=== PATIENT | male | born 1960 | race Caucasian/White ===

== ENCOUNTER 2021-01-12 19:38 | Observation (INO) | payer BC, SELFPAY ==
[2021-01-12] VITALS (7 sets, daily range): BP systolic 129–145; BP diastolic 74–87; PULSE 57–65; RESP 14–21; TEMP 36.3–36.7; O2SAT 95–100; BMI 28.8
--- NOTE | ~2021-01-12 | CT_ITS ---
EXAMINATION: CT brain wo con DATE: 01/12/2021 20:27 INDICATION: Syncope. Vision difficulties. TECHNIQUE: Computed tomography (CT) of the head was performed without intravenous contrast. The mA wa s adjusted according to patient size. Iterative reconstruction technique was employed. Exam dose: 60 5.33 mGy-cm total exam DLP. COMPARISON: None FINDINGS: No intracranial mass lesion or hemorrhage or cerebrovascular accident. No midline shift or mass effect. Normal ventricular size. No subdural or epidural hematoma. No fracture or bone destruction of the cranial vault. Hypoplastic opacified right maxillary sinus. Interlamellar cell of middle nasal turbinates. Mucous retention cyst or polyp in the right frontal ethmoid area. The mastoid air cells are normally developed and aerated. IMPRESSION: No significant intracranial abnormality Reviewed, dictated and finalized at Location [facility]. Reviewed, dictated and finalized at location A.
--- NOTE | ~2021-01-12 | US_ITS ---
EXAMINATION: US carotid duplex BI DATE: 01/13/2021 12:59 INDICATION: Syncope TECHNIQUE: Grayscale, color Doppler, and pulsed Doppler images of the cervical carotid arteries were obtained. The degree of vessel stenosis is placed in one of the following categories: normal, <50%, 5 0-69%, >=70% but less than near-occlusion, near-occlusion, or total occlusion. Note that percent sten osis relative to normal distal artery lumen diameter is indirectly measured from velocity measurement s as described by Carmelo, et al. Radiology 2003; 229:340-346. COMPARISON: None. FINDINGS: RIGHT: The right common carotid artery (CCA) peak systolic velocity (PSV) is 100 cm/s. The right internal ca rotid artery (ICA) PSV is 69 cm/s. The right ICA end-diastolic velocity (EDV) is 23 cm/s. The right I CA/CCA PSV ratio is 0.7. Grayscale and color Doppler images yield an estimate of <50% diameter reduct ion from plaque in the ICA. The external carotid artery (ECA) PSV is 104 cm/s. There is antegrade dana w in the right vertebral artery. LEFT: The left CCA PSV is 114 cm/s. The left ICA PSV is 89 cm/s. The left ICA EDV is 30 cm/s. The left ICA/ CCA PSV ratio is 0.8. Grayscale and color Doppler images yield an estimate of <50% diameter reduction from plaque in the ICA. The ECA PSV is 81 cm/s. There is antegrade flow in the left vertebral artery . IMPRESSION: 1. <50% stenosis in the right internal carotid artery. 2. <50% stenosis in the left internal carotid artery. Reviewed, dictated and finalized at location A.
--- NOTE | ~2021-01-12 | XR_ITS ---
XR chest 1V portable DATE: 01/12/2021 20:02 INDICATION: Shortness of breath for one hour. Syncope. TECHNIQUE: Portable upright AP chest on 01/12/2021 at 1957 hours COMPARISON: 11/30/2018 PA and lateral views FINDINGS: Heart size is borderline. No hilar or mediastinal enlargement. No pulmonary infiltrate or c onsolidation, pleural effusion or pulmonary vascular congestion or pneumothorax. IMPRESSION: No active pulmonary disease Reviewed, dictated and finalized at location A. IMPRESSION: No active pulmonary disease
--- NOTE | ~2021-01-12 | US_ITS ---
EXAMINATION: US abdomen complete DATE: 01/14/2021 09:43 INDICATION: Chest pain and nausea TECHNIQUE: Multiple grayscale and Doppler ultrasound images of the abdomen were obtained. COMPARISON: CT dated 01/12/2021 FINDINGS: The region of the pancreas is obscured by shadowing bowel gas. The aorta and inferior vena cava are a lso not clearly visualized. Liver has normal echogenicity and contour, with a smooth surface. No live r lesion identified. No intrahepatic biliary duct dilation suspected. Portal venous flow was seen in the hepatopetal, normal direction and has normal Doppler waveform. The gallbladder is normal in appea angelique. There is no cholelithiasis. The common bile duct measures 4-5 mm, which is normal. Sonographi c Hsu sign was reported as negative by the director of customer service. There is normal renal contour and echogeni city bilaterally. The right kidney measures 9.6 x 4.8 x 4.7 cm and the left 10.1 x 4.4 x 5.7 cm. 8 mm shadowing stone in the lower right kidney. There is no hydronephrosis in either kidney. Normal sple en measuring 11.4 cm in maximal length. IMPRESSION: 1. 8 mm nonobstructing right renal stone. Otherwise unremarkable abdominal ultrasound. Reviewed, dictated and finalized at location A. IMPRESSION: 1. 8 mm nonobstructing right renal stone. Otherwise unremarkable abdominal ultr asound.
--- NOTE | ~2021-01-12 | CT_ITS ---
EXAMINATION: CTA chest PE protocol DATE: 01/12/2021 22:09 INDICATION: Syncope TECHNIQUE: Computed tomography angiography (CTA) of the chest was performed with 100 mL Omnipaque-350 intravenous contrast timed to evaluate the pulmonary arteries. Coronal maximum intensity projection 3D-reconstructions were created by the technologist. Automated exposure control and iterative reconst ruction technique were employed. Exam dose: 665.95 mGy-cm total exam DLP. COMPARISON: portable AP chest FINDINGS: There is diagnostic contrast enhancement of the pulmonary arteries and no evidence of pulmo nary embolism. No thoracic aortic aneurysm or dissection. Normal size and homogeneous enhancement of the thyroid gland. No hilar or mediastinal mass lesion or lymphadenopathy. Borderline heart size. No pericardial or pleural effusion. No pulmonary infiltrate or consolidation or suspicious pulmonary mass lesion. Small sliding hiatal hernia. Normal morphology of the adrenal glands. Diffuse idiopathic skeletal hyperostosis of the thoracic spine. No suspicious osteolytic or osteoblastic lesions. IMPRESSION: No evidence of pulmonary embolism Small sliding hiatal hernia Reviewed, dictated and finalized at Location [facility]. Reviewed, dictated and finalized at location A.
--- NOTE | 2021-01-12 19:54 | ED.GENADULT ---
HPI - General Adult General Chief complaint: Syncope Stated complaint: syncopal, chest pain Time Seen by Provider: 01/12/21 19:49 Source: RN notes reviewed History of Present Illness HPI narrative: Patient presents to emergency department from home for syncopal episode. Patient states he was seen a table talking to friends he states he noted some spots in his vision and was going to tell his friends that he did not feel well when he had a syncopal episode per significant other this present patient was out for approximately 1 minute she states that the patient vomited right before syncopal episode and then would not respond for approximately 1 minute patient this time states he feels back to normal he denies having any current vision changes chest pain abdominal pain or any other symptoms. He did note mild shortness of breath with the episode he denies any previous cardiac history. He states he did have one beer at dinner and then 1 beer seen out on the patio but denies any other alcohol use Related Data Allergies Allergy/AdvReac Type Severity Reaction Status Date / Time Penicillins Allergy Unknown Verified 01/12/21 19:52 Review of Systems Review of Systems: Gen.: Denies fevers or chills Eyes: Denies eye pain states had spots in vision prior to syncopal episode ENT: Denies congestion Respiratory: Reports mild shortness of breath CV: Denies chest pain reports syncopal episode GI: Denies abdominal pain nausea, emesis or diarrhea Musculoskeletal: Denies back pain or muscle pain Neuro: Denies numbness, tingling, weakness or focal weakness Skin: Denies rash Except as documented, all other systems reviewed and negative [facility] Past Medical History Medical History (Updated 01/12/21 @ 22:30 by Cyrus Ndiaye DO) Hypercholesterolemia Social History Social History (Updated 01/12/21 @ 19:55 by Cyrus Ndiaye DO) Smoking status: Never smoker Exam Narrative: APPEARANCE: No acute distress, nontoxic, resting in bed HEENT: Normocephalic, atraumatic, EYES: PERRL, EOMI NECK: Supple, nontender, full range of motion without pain, no meningismus RESPIRATORY: No respiratory distress, clear to auscultation bilaterally with no rhonchi wheezing or rales CARDIOVASCULAR: RRR s murmur ABDOMINAL: Soft, nontender, nondistended MUSCULOSKELETAL: Moves all extremities. No clubbing, cyanosis or edema. NEURO: A and O ?3, following commands, speech normal, no facial droop,muscle strength 5 out of 5 bilateral upper and lower extremities no pronator drift SKIN:: Warm, dry. Normal Color PSYCHIATRIC: Normal affect/mood Course Course Emergency Course: Called and discussed with Dr. Arellano presentation work-up agrees with admission at this time request CTA chest Discussed with patient and family results of workup and diagnosis. Discussed need for admission. Patient and family understand and agree to current treatment plan Vital Signs Vital signs: Vital Signs Temperature 97.4 F L 01/12/21 19:43 Pulse Rate 63 01/12/21 19:43 Respiratory Rate 14 01/12/21 19:43 Blood Pressure 139/87 01/12/21 19:43 Pulse Oximetry 95 01/12/21 19:43 Temperature 97.4 F L 01/12/21 19:43 Pulse Rate 65 01/12/21 22:07 Respiratory Rate 18 01/12/21 22:07 Blood Pressure 145/85 H 01/12/21 22:07 Pulse Oximetry 97 01/12/21 22:07 Medical Decision Making Vital Signs Vital Signs: Vital Signs Temperature 97.4 F L 01/12/21 19:43 Pulse Rate 63 01/12/21 19:43 Respiratory Rate 14 01/12/21 19:43 Blood Pressure 139/87 01/12/21 19:43 Pulse Oximetry 95 01/12/21 19:43 Temperature 97.4 F L 01/12/21 19:43 Pulse Rate 65 01/12/21 22:07 Respiratory Rate 18 01/12/21 22:07 Blood Pressure 145/85 H 01/12/21 22:07 Pulse Oximetry 97 01/12/21 22:07 Lab Data Result diagrams: 01/12/21 19:59 01/12/21 19:59 Labs: Lab Results 01/12/21 01/12/21 01/12/21 Range/Units 19:59 19:59 19:59 WBC 9.1
[2021-01-12 20:05] LABS: Basophils Absolute Auto 0.1 K/mm3 (0.0-0.1); Basophils Percent Auto 0.7 % (0.2-1.2); Eosinophils Absolute Auto 0.5 K/mm3 (0-0.3); Eosinophils Percent Auto 5.9 % (0-4.4); Hematocrit 46.5 % (42.0-52.0); Immature Granulocyte Absolute 0.03 K/mm3 (0.00-0.031); Immature Granulocyte Percent A 0.3 % (0-0.5); Lymphocytes Absolute Auto 3.18 K/mm3 (0.9-3.2); Lymphocytes Percent Auto 34.9 % (18.3-44.2); Mean Corpuscular HGB Conc 34.4 g/dl (32-36); Mean Corpuscular Hemoglobin 30.4 pg (26-34); Mean Corpuscular Volume 88.2 fl (80-100); Mean Platelet Volume 9.8 fl (7.4-10.4); Monocytes Absolute Auto 0.8 K/mm3 (0.1-0.6); Neutrophils Absolute Auto 4.5 K/mm3 (1.3-6.7); Neutrophils Percent Auto 49.2 % (45.5-73.1); Platelet Count Result 258 k/mm3 (150-375); Red Blood Count 5.27 M/mm3 (4.6-6.20); Red Cell Distribution Width 12.2 % (11.5-14.5); White Blood Count 9.1 K/mm3 (4.5-10.0)
--- NOTE | 2021-01-12 20:13 | ECG_ITS ---
Measurements Intervals [place] Rate: 58 P: 46 CT: 163 QRS: -2 QRSD: 96 T: 7 QT: 417 QTc: 412 Interpretive Statements SINUS BRADYCARDIA LEFT ATRIAL ENLARGEMENT BORDERLINE T WAVE ABNORMALITY- INFERIOR LEADS BORDERLINE ECG Electronically Signed On 01-13-2021 6:57:35 CDT by Sanchez Pratt D.O.
[2021-01-12 20:14] LABS: INR 0.9; Prothrombin Time 11.9 Seconds (11.1-14.7)
[2021-01-12 20:15] LABS: Partial Thromboplastin Time 21.7 SECONDS (22.3-36.8)
[2021-01-12 20:21] LABS: Alanine Aminotransferase 35 U/L (4-50); Albumin Level 4.6 g/dL (3.5-5.1); Alkaline Phosphatase 64 U/L (38-126); Anion Gap 9 mmol/L (8-16); Aspartate Amino Transferase 24 U/L (17-59); Bilirubin,Total 0.6 mg/dL (0.2-1.3); Blood Urea Nitrogen 18 mg/dL (9-20); Calcium 9.5 mg/dL (8.4-10.2); Carbon Dioxide 25 mmol/L (22-30); Chloride 104 mmol/L (98-107); Estimated CRCL calculation 75 ml/min; Estimated Glomerular Filt Rate > 60; Glucose 111 mg/dL (65-110); Potassium 3.5 mmol/L (3.4-5.0); Sodium 138 mmol/L (137-145)
[2021-01-12 20:24] LABS: Ethanol < 10 mg/dL (<10)
[2021-01-12] MEDS: SODIUM CHLORIDE 0.9% IV 1,000 ML 999 ML IV CONT (20:28)
[2021-01-12 20:33] LABS: Troponin I < 0.012 ng/mL (0.000-0.034)
[2021-01-12 21:48] LABS: Add Urine Microscopic? YES; Appearance Urine Clear (Clear); Bilirubin Urine Negative (Negative); Blood Urine 1+ (Negative); Color Urine Yellow (Yellow); Glucose Urine UA Negative (Negative); Ketones Urine Negative (Negative); Leukocyte Esterase Ur Negative LEU/UL (Negative); Mucus Urine Few /lpf; Nitrate Urine Negative (Negative); Protein Urine 1+ mg/dL (Negative); Specific Grav Ur 1.026 (1.001-1.035); Urobilinogen Urine Negative mg/dL (<2.0)
--- NOTE | 2021-01-12 22:39 | PC.NURSE ---
This patient, Francisco Santa, was admitted to Medical Room 340-01. Patient/family oriented to hospital policies and general routines including ID bracelet, bed and alarms, visiting hours, pain management, procedures, bathroom and other care routines, personal items, smoking policy, room service/diet, and visiting hours. Information on how to activate the Rapid Response Team has been discussed. Patient/Family are encouraged to report perceived risks to care and to ask questions if they do not understand what they are told or what they should do.
[2021-01-12] MEDS: SODIUM CHLORIDE 0.9% IV 1,000 ML 80 ML IV CONT (22:49)
[2021-01-13] VITALS (11 sets, daily range): BP systolic 149–158; BP diastolic 73–86; PULSE 49–71; RESP 16–20; TEMP 35.9–36.6; O2SAT 97–98
--- NOTE | 2021-01-13 | ECHO_ITS ---
Patient Info Name: Francisco Santa Age: 60 years : 1960 Gender: Male Ht: 71 in Wt: 206 lbs BSA: 2.18 m2 HR: 85 bpm BP: 138 / 74 mmHg Heart Rhythm: Sinus Rhythm Technical Quality: Good Exam Date: 01/13/2021 7:51 AM Exam Location: [facility] Pulmonary Exam Room: 340 Patient Status: Outpatient Admit Date: 01/12/2021 Staff Ordering Physician: Waleska Arellano DO Hand Lens Polisher: Rae Tony RDCS Attending Provider: Waleska Arellano DO Referring Physician: Adan ZEPEDA; Exam Type: CA echo doppler color flow Study Info Indications R55 - Syncope and collapse Complete two-dimensional, color flow and Doppler transthoracic echocardiogram is performed. Summary 1. Complete two-dimensional, color flow and Doppler transthoracic echocardiogram is performed. 2. Trivial amount of pulmonic valve regurgitation with physiologic normal range. 3. Otherwise completely unremarkable echocardiogram. Left Ventricle Left ventricular chamber dimension is normal. Left ventricular systolic function is normal, estimated at 60-65%. The left ventricular diastolic function is normal. Right Ventricle Right ventricular chamber dimension is normal. Left Atria Left atrial chamber dimension is normal. Right Atria Right atrial chamber dimension is normal. Aortic Valve The aortic valve is normal. Pulmonic Valve The pulmonic valve is normal. There is trace pulmonic regurgitation. Mitral Valve The mitral valve has normal leaflets. Tricuspid Valve The tricuspid valve leaflets are normal. Pericardium/Pleural The pericardium appears normal. Aorta The aortic root size at the sinus of Valsalva is normal. Left Ventricular Outflow Tract Name Value Normal LVOT 2D LVOT Diameter 2.0 cm LVOT Doppler LVOT Peak Gradient 6 mmHg LVOT Mean Gradient 3 mmHg LVOT VTI 25 cm LVOT VTI/AV VTI Ratio 0.8 LVOT Stroke Volume 81 ml LVOT CO 15.6 l/min LVOT CI 7.2 l/min/m2 Pulmonic Valve Name Value Normal PV Doppler PV Peak Gradient 4 mmHg PV Regurgitation Doppler NC Peak End Diastolic Velocity 103 cm/s Mitral Valve Name Value Normal MV Doppler MV Decel [place] 438 cm/s2 MV PHT 65 ms MV Area (PHT)
[2021-01-13 00:48] LABS: Troponin I < 0.012 ng/mL (0.000-0.034)
--- NOTE | 2021-01-13 00:52 | PM.IMHP ---
H&P: HPI History of Present Illness Date/Time: 01/12/21 23:50 Chief Complaint: Passed out Narrative: 60-year-old male with past medical history of mild intermittent asthma and hyperlipidemia presented to the ER after having a syncopal event. The patient was sitting right at the dinner table talking with friends when he suddenly noticed some dark spots in his left lateral visual field. He then noticed dark spots in his right visual field. He noted he did not feel right but for he could tell his he passed out. His reported that the patient passed out for about a minute and took about a minute to recover afterwards. The patient had an episode of emesis as he passed out. The patient was not feeling nauseated prior to passing out. After he woke up he was Having some chest lightness . He denied any chest pain or palpitations. He has never had a syncopal event before. He was not feeling ill prior to onset of symptoms. He denies any lower extremity edema, pain, orthopnea or paroxysmal nocturnal dyspnea. He denies any cardiac history. He does have a history GERD intake Tums from time to time. He had had fish and tater tots prior to onset of symptoms. He had had a little over 1 beer prior to onset of symptoms. He denies having any GERD or heartburn currently. He has not had any further nausea or vomiting. He denies any diarrhea or changes in bowel habits. He has not had any hematochezia or melena. Review of Systems Review of Systems: 12 systems were reviewed with pertinent positives and negatives per HPI. Except as documented in the HPI, all other systems were reviewed and are negative. [facility] Past Medical History Medical History (Updated 01/13/21 @ 01:16 by Waelska Arellano DO) COVID-19 vaccine series completed (~08/2020) Moderna Hypercholesterolemia Mild intermittent asthma Surgical History Surgical History (Updated 01/13/21 @ 01:00 by Waleska Arellano DO) History of tonsillectomy and adenoidectomy Family History Family History Sibling Cerebrovascular accident, Onset Age: 60 Father Myocardial infarct, Onset Age: 65 Hypertension Mother Patient's mother is in good health age 93 Social History Social History (Updated 01/13/21 @ 01:16 by Waleska Arellano DO) Social History: He lives in [facility] with his of 39 years. They have 1 daughter 1 son who are healthy. They have several grandchildren. He is retired from [employer]. He drinks 5-6 beers every other week or so. He smokes an occasional cigarette. He has never been a daily smoker. He uses marijuana on occasion. Primary care physician: Dr. Karl Freeman Smoking status: Never smoker Alcohol intake: current Drinks per week: 1 Substance use: current Substance use type: marijuana Last use: DRINKS BEER SOCIALLY, MARIJUANA ON OCCASION Spiritual care concerns: No (LUTHERN) Meds Home Medications and Allergies Home Medications Medication Instructions Recorded Confirmed Type simvastatin 20 mg PO DAILY 01/12/21 01/12/21 History Allergies Allergy/AdvReac Type Severity Reaction Status Date / Time nut - unspecified Allergy Vomiting Verified 01/12/21 22:44 Penicillins Allergy Rash Verified 01/12/21 22:44 Vital Signs Vital Signs - 24 hr 01/12/21 19:43 01/12/21 20:31 01/12/21 20:40 Temperature 97.4 F L Pulse Rate 64 57 L 63 Respiratory Rate 14 17 Blood Pressure 139/87 129/81 132/85 Pulse Oximetry 95 98 01/12/21 20:41 01/12/21 20:43 01/12/21 22:07 Temperature Pulse Rate 64 65 65 Respiratory Rate 18 Blood Pressure 145/81 H 142/85 H 145/85 H Pulse Oximetry 97 01/12/21 22:35 01/13/21 00:00 Temperature 98.0 F Pulse Rate 63 68 Respiratory Rate 21 H Blood Pressure 138/74 Pulse Oximetry 100 Exam Narrative: PHYSICAL EXAM: WEIGHT 93.7 kg BMI 28.8 General: well-developed, well-nourished
[2021-01-13 03:59] LABS: Basophils Absolute Auto 0.1 K/mm3 (0.0-0.1); Basophils Percent Auto 0.5 % (0.2-1.2); Eosinophils Absolute Auto 0.3 K/mm3 (0-0.3); Eosinophils Percent Auto 2.4 % (0-4.4); Hematocrit 44.1 % (42.0-52.0); Immature Granulocyte Absolute 0.05 K/mm3 (0.00-0.031); Immature Granulocyte Percent A 0.5 % (0-0.5); Lymphocytes Absolute Auto 2.51 K/mm3 (0.9-3.2); Lymphocytes Percent Auto 24.2 % (18.3-44.2); Mean Corpuscular Hemoglobin 30.2 pg (26-34); Mean Corpuscular Volume 88.7 fl (80-100); Mean Platelet Volume 9.8 fl (7.4-10.4); Monocytes Absolute Auto 0.7 K/mm3 (0.1-0.6); Neutrophils Absolute Auto 6.8 K/mm3 (1.3-6.7); Neutrophils Percent Auto 65.4 % (45.5-73.1); Platelet Count Result 244 k/mm3 (150-375); Red Blood Count 4.97 M/mm3 (4.6-6.20); Red Cell Distribution Width 12.4 % (11.5-14.5); White Blood Count 10.4 K/mm3 (4.5-10.0)
[2021-01-13 04:07] LABS: Anion Gap 7 mmol/L (8-16); Blood Urea Nitrogen 15 mg/dL (9-20); Carbon Dioxide 25 mmol/L (22-30); Chloride 104 mmol/L (98-107); Estimated CRCL calculation 75 ml/min; Estimated Glomerular Filt Rate > 60; Glucose 103 mg/dL (65-110); Potassium 3.7 mmol/L (3.4-5.0); Sodium 136 mmol/L (137-145)
[2021-01-13 04:19] LABS: Troponin I < 0.012 ng/mL (0.000-0.034)
[2021-01-13] MEDS: SIMVASTATIN 20 MG TABLET PO (08:10)
[2021-01-13] MEDS: CIPROFLOXACIN 400 MG/D5W 200ML 200 ML 200 MG IVPB ×2 (09:32→20:11)
[2021-01-13 10:55] LABS: Thyroid Stimulating Hormone 0.752 uIU/mL (0.465-4.680)
--- NOTE | 2021-01-13 11:10 | WPDGICN ---
Assessment and Plan Assessment and plan (1) GERD (gastroesophageal reflux disease): Code(s): K21.9 - Gastro-esophageal reflux disease without esophagitis <Crys Jennings APRN - Last Filed: 01/13/21 11:29> Status: Acute <Crys Jennings APRN - Last Filed: 01/13/21 11:29> Assessment and Plan: Impression: Pyrosis likely r/t GERD Syncopal episode with Chest Tightness Hematuria Colon Cancer Screening Asthma Hx of Kidney Stones Recommendations 1. Abd US to rule out gallstones 2. PPI BID 3. Cardiac Evaluation including stress test and carotid Dopplers 4. EGD and Colonoscopy outpatient <Crys Jennings APRN - Last Filed: 01/13/21 11:29> GI Consult Note Consult date/time: 01/13/21 11:10 Here we have a very pleasant 60 yo male who presented to ER last evening after episode of syncope. He states he was sitting on the patio and had change of vision and chest tightness. He then loss consciousness and states his told him he was unconscious for around 1 minute, he did vomited 1 episode after awakening that was non bloody.. He does state prior to this episode he had had fried fish and tator tots. He denies any abdominal pain, or nausea. He has no hx of syncopal episode in he past. He does have several year hx of pyrosis. He gets pyrosis around 1 time per day and not always associated with eating. He does try to avoid acidic foods for this reason. He uses tums currently which relives pyrosis and will get chest pressure with this and this is also relived with Tums. In the past he had control of pyrosis with PRN Zantac and had tried Famotidine with no help. He denies any dysphagia, odynophagia, brash, regurgitation, early satiety, weight loss, or appetite loss. He denies any change in bowel habits, diarrhea, constipation, melena or hematochezia. Denies NSAID use. Had cologuard 3 years ago that was negative. No family hx of GI malignances or personal hx of colon polyps. <Crys Jennings APRN - Last Filed: 01/13/21 11:29> HPI: Francisco Santa is a 60 year old male <Crys Jennings APRN - Last Filed: 01/13/21 11:29> [facility] Past Medical History Medical History: Medical History (Updated 01/13/21 @ 11:19 by Crys Jennings APRN) COVID-19 vaccine series completed (~08/2020) Moderna Hypercholesterolemia Mild intermittent asthma <Crys Jennings APRN - Last Filed: 01/13/21 11:29> Surgical History Surgical History: Surgical History (Updated 01/13/21 @ 01:00 by Waleska Arellano DO) History of tonsillectomy and adenoidectomy <Crys Jennings APRN - Last Filed: 01/13/21 11:29> Family History Family History: Family History Sibling Cerebrovascular accident, Onset Age: 60 Father Myocardial infarct, Onset Age: 65 Hypertension Mother Patient's mother is in good health age 93 <Crys Jennings APRN - Last Filed: 01/13/21 11:29> Social History Social History: Social History (Updated 01/13/21 @ 01:16 by Waleska Arellano DO) Social History: He lives in [facility] with his of 39 years. They have 1 daughter 1 son who are healthy. They have several grandchildren. He is retired from [employer]. He drinks 5-6 beers every other week or so. He smokes an occasional cigarette. He has never been a daily smoker. He uses marijuana on occasion. Primary care physician: Dr. Karl Freeman Smoking status: Never smoker Alcohol intake: current Drinks per week: 1 Substance use: current Substance use type: marijuana Last use: DRINKS BEER SOCIALLY, MARIJUANA ON OCCASION Spiritual care concerns: No (LUROSENDA) <Crys Jennings APRN - Last Filed: 01/13/21 11:29> Meds Home Medications and Allergies Home medications: Home Medications Medication Instructions Recorded Confirmed Type simvastatin 20 mg PO DAILY 01/12/21 01/12/21 History <Ra
[2021-01-13] MEDS: PANTOPRAZOLE SODIUM IV 40 MG VIAL IV PUSH ×2 (11:33→20:13)
--- NOTE | 2021-01-13 12:24 | PM.IMPN ---
Progress Note: A&P Assessment and Plan (1) GERD (gastroesophageal reflux disease): Code(s): K21.9 - Gastro-esophageal reflux disease without esophagitis Status: Acute Assessment and Plan: Pyrosis likely r/t GERD consulted sanitation technician Colon Cancer Screening Hx of Kidney Stones Abd US to rule out gallstones PPI BID EGD and Colonoscopy outpatient Asthma (2) Syncope: Code(s): R55 - Syncope and collapse Status: Acute Assessment and Plan: alert and oriented x 4 no motor or sensory deficits on Neuro Exam carotid Doppler ultrasound, consulted Tank Carpenter echo Lexiscan stress test due to chest tightness. orthostatic vital signs have been stable. 3 troponins were negative reviewed his EKG and found sinus rhythm. on telemetry monitoring continuously - Telemetry has shown his heart rate to drop 44 as the lowest, with the majority of his heart rate in the 50s and 60s sinus rhythm. Otherwise no ectopy noted. he has a nut allergy with vomiting reaction., could have possibly been exposed or cooked with nut products. This is very unlikely the cause so we will continue his cardiac and GI workup, but may be a possibility. no evidence of COVID at this time (3) Hematuria: Code(s): R31.9 - Hematuria, unspecified Status: Acute Assessment and Plan: noted on UA patient can follow up with PCP for further testing and Prostate workup no groin/flank pain ; no difficulty urinating H/H stable may be related to UTI urine cultures pending renal function stable Creatinine 1.0 treating possible UTI with Cipro colon cancer screening Subjective Date/time seen: 01/13/21 12:24 Francisco was pleasant and concerned that his syncopal/vomiting/epigastric burning pain episode would keep him from going on a cruise in a week or 2 for his birthday. Even during our conversation he was continuing to have some acid reflux and felt epigastric burning pain after his breakfast. He stated that he used to be on Pepcid, but is no longer taking that medication. He stated he has always had trouble with reflux, and found that he feels best if staying upright after meals. I did start him on IV Protonix twice a day consult GI as well as Cardiology. I ordered carotid Doppler ultrasound, an echo and a Lexiscan stress test. His orthostatic vital signs have been stable. His 3 troponins were negative and I reviewed his EKG and found sinus rhythm. He is on telemetry monitoring continuously. Telemetry has shown his heart rate to drop 44 as the lowest, with the majority of his heart rate in the 50s and 60s sinus rhythm. Otherwise no ectopy noted. I did note that he has a nut allergy with vomiting reaction. When I inquired about the meal he was eating during his episode, he did say it was take out and therefore could of possibly been exposed or cooked with nut products. This is very unlikely the cause so we will continue his cardiac and GI workup, but may be a possibility. I also informed him and discussed the hiatal hernia found on a CT scan. Francisco stated that he and his did have both of his COVID vaccinations. And he has not had any fevers or felt ill. His head CT was normal. His urinalysis showed that he might have a UTI, urine culture is pending. Patient had penicillin allergy, so I started him on IV Cipro, which he tolerated well this morning Review of Systems Constitutional: Constitutional: Denies excessive sweating, Denies headache(s), Denies increased appetite, Denies snoring and Denies weight gain Eyes: Eyes: Denies exophthalmos, Denies diplopia, Denies floaters and Denies loss of peripheral vision ENT: Denies facial pain, Denies headache(s), Denies odynophagia and Denies tinnitus Respiratory: Respiratory: Denies snoring Gastrointestinal: Gastrointestinal: Reports as per HPI, Reports belching, Denies melena, Reports dyspepsia, Reports heartburn, Denies odynophagia, Denies vomiting and Denies hematemesis
--- NOTE | 2021-01-13 14:13 | PM.CNCAR ---
Assessment and Plan Additional Plan this is a 60-year-old man who experienced a syncopal episode last evening at home as described above. He recovered from the spontaneously and appears to be stable. His electrocardiogram is normal as is his cardiac physical exam. His telemetry since admission is also unremarkable. I believe he can be discharged to home. I will arrange for a 48 hour Holter monitor to be done in my office after which I will see him in follow-up and determine if any further investigation is necessary at that time. He is not reporting any symptoms that would concern me regarding ischemic heart disease and I do not at this point consider a stress test to be necessary or helpful in this situation Gato Jewell MD [facility] History of Present Illness History of Present Illness Consult date/time: 01/13/21 14:13 Reason For Visit: syncope Narrative: this is a 60-year-old man I am seeing at the request of the hospitalist after he experienced a syncopal episode at home and was seen in the emergency room and admitted last evening to the hospital. He is comfortable now and does not have any active cardiac complaints or medical complaints of any kind. He says he has never had any difficulty with this heart in the past that he can recall. He was at his home having dinner with his and some friends last evening. After they finished eating they went out to the patio to sit down and relax for a while he stated he started to feel unwell with some spots in his visual field and shortly after that he obviously lost consciousness when he awakened he was feeling nauseated and it was obvious that he he had vomited while he was unresponsive. He did not have any other symptomatology and after short time he felt well. Because of this incident there was obvious concern about his health and he was brought to the emergency room for evaluation and then admitted to the hospital. His electrocardiogram is completely unremarkable. He has been placed on telemetry and there have been no arrhythmias seen overnight. The patient had an echocardiogram done this morning which has not been interpreted yet since I have Not been in the Heart Station to read the exams. he was seen by a store sales manager this morning in consultation. Following that consultation there was some concern that he should have a Holter monitor and a stress test performed and I was asked to see him in this setting. He is not reporting any exertional symptomatology that would raise concern in my part that he is having an ischemic issue. He states he does not exercise regularly but does lead an active lifestyle and has never had any exertional symptoms such as shortness of breath chest pain pressure or heaviness he denies any sense of palpitations orthopnea PND or accumulating lower extremity edema. Apparently he was found to have evidence of hiatal hernia. Review of Systems Constitutional: Constitutional: Reports no additional constitutional complaints Eyes: Eyes: Reports no additional eye complaints ENT: Reports system reviewed and no additional complaints, except as documented Cardiovascular: Cardiovascular: Reports no additional cardiovascular complaints Respiratory: Respiratory: Reports no additional respiratory complaints Gastrointestinal: Gastrointestinal: Reports no additional gastrointestinal complaints Musculoskeletal: Musculoskeletal: Reports no additional musculoskeletal complaints Integumentary/Breasts: Skin/Breast: Reports system reviewed and no additional complaints, except as docu Neurologic: Reports system reviewed and no additional complaints, except as documented Psychiatric: Psychiatric: Reports no additional psychiatric complaints Endocrine: Endocrine: Reports no additional endocrine complaints Hematologic/Lymphatic: Hematologic/Lymphatic: Reports no additional hematologic/lymphatic complaints Allergic/Immunologic: Allergic/Immunologic: Reports no addition
[2021-01-13 14:22] LABS: Hematocrit 45.4 % (42.0-52.0); Hemoglobin 15.3 g/dL (14.0-18.0); Mean Corpuscular HGB Conc 33.7 g/dl (32-36); Mean Corpuscular Hemoglobin 30.4 pg (26-34); Mean Corpuscular Volume 90.3 fl (80-100); Mean Platelet Volume 9.6 fl (7.4-10.4); Platelet Count Result 239 k/mm3 (150-375); Red Blood Count 5.03 M/mm3 (4.6-6.20); Red Cell Distribution Width 12.5 % (11.5-14.5); White Blood Count 9.2 K/mm3 (4.5-10.0)
[2021-01-13 14:34] LABS: Anion Gap 9 mmol/L (8-16); Blood Urea Nitrogen 14 mg/dL (9-20); Calcium 9.3 mg/dL (8.4-10.2); Carbon Dioxide 24 mmol/L (22-30); Chloride 102 mmol/L (98-107); Estimated CRCL calculation 75 ml/min; Estimated Glomerular Filt Rate > 60; Glucose 126 mg/dL (65-110); Potassium 3.7 mmol/L (3.4-5.0); Sodium 135 mmol/L (137-145)
[2021-01-13 14:35] LABS: Magnesium 2.1 mg/dL (1.6-2.3)
[2021-01-14] VITALS: PULSE 59
[2021-01-14 04:00] VITALS: PULSE 49
[2021-01-14 05:51] VITALS: BP 141/81; PULSE 54; RESP 16; TEMP 36.1; O2SAT 98
[2021-01-14 06:28] LABS: Hematocrit 47.4 % (42.0-52.0); Hemoglobin 15.6 g/dL (14.0-18.0); Mean Corpuscular HGB Conc 32.9 g/dl (32-36); Mean Corpuscular Hemoglobin 29.9 pg (26-34); Mean Platelet Volume 9.7 fl (7.4-10.4); Platelet Count Result 232 k/mm3 (150-375); Red Blood Count 5.21 M/mm3 (4.6-6.20); Red Cell Distribution Width 12.5 % (11.5-14.5); White Blood Count 8.6 K/mm3 (4.5-10.0)
[2021-01-14 06:48] LABS: Alanine Aminotransferase 29 U/L (4-50); Albumin Level 4.2 g/dL (3.5-5.1); Alkaline Phosphatase 61 U/L (38-126); Anion Gap 10 mmol/L (8-16); Aspartate Amino Transferase 27 U/L (17-59); Blood Urea Nitrogen 15 mg/dL (9-20); Calcium 9.2 mg/dL (8.4-10.2); Carbon Dioxide 21 mmol/L (22-30); Chloride 105 mmol/L (98-107); Estimated CRCL calculation 68 ml/min; Estimated Glomerular Filt Rate > 60; Glucose 91 mg/dL (65-110); Potassium 3.6 mmol/L (3.4-5.0); Sodium 136 mmol/L (137-145)
[2021-01-14 08:00] VITALS: PULSE 51
--- NOTE | 2021-01-14 08:33 | PM.DS ---
DS: Admitting Diagnosis Admitting Diagnosis Syncope, vomiting, chest pressure/epigastric pain DS: Discharge Diagnosis Discharge Diagnosis (1) GERD (gastroesophageal reflux disease): Code(s): K21.9 - Gastro-esophageal reflux disease without esophagitis Status: Acute Assessment and Plan: Pyrosis likely r/t GERD consulted poker machine attendant Colon Cancer Screening Hx of Kidney Stones Abd US showed no concern with gallstones, he does have a nonobstructing kidney stone. PPI continued daily at discharge EGD and Colonoscopy outpatient He will follow-up with gastroenterology (2) Syncope: Code(s): R55 - Syncope and collapse Status: Acute Assessment and Plan: alert and oriented x 4 no motor or sensory deficits on Neuro Exam carotid Doppler ultrasound clear without any concerns consulted Block Greaser agreed with getting a Holter monitor for the patient this week but okay to discharge today echo completed and report without concerns, LVEF 60-65% patient will follow-up with mid wife to discuss echo orthostatic vital signs have been stable. 3 troponins were negative reviewed his EKG and found sinus rhythm. on telemetry monitoring continuously -yesterday Telemetry has shown his heart rate to drop 44 as the lowest, with today the lowest was 49. majority of his heart rate in the 50s and 60s sinus rhythm. Otherwise no ectopy noted. no evidence of COVID at this time (3) Hematuria: Code(s): R31.9 - Hematuria, unspecified Status: Acute Assessment and Plan: noted on UA patient can follow up with PCP and urologist for further testing and Prostate workup no groin/flank pain ; no difficulty urinating H/H stable UTI ruled out No growth on urine cultures, no growth on blood cultures x2 renal function stable Creatinine 1.0, 1.1 colon cancer screening per poker machine attendant Abdominal ultrasound showed nonobstructing kidney stone Patient will follow-up with urologist DS: Summary Hospital Course Hospital Course: Consulted Gastroenterology and consulted Cardiology, abdominal ultrasound showed nonobstructing kidney stone, neuro assessments or without any deficits, sensory and strength remained intact, no further syncopal events, carotid Dopplers completed and normal, head CT normal, EKG normal telemetry monitoring overnight for 2 nights showed no ectopy only bradycardia with a heart rate as low as 44. He was found to have significant reflux and GERD as well as a hiatal hernia, responded well to IV Protonix and will be discharged on oral Protonix. Cardiology and gastroenterology okay with discharge today. He will follow up with some outpatient Time Spent with Patient Time attestation: Total time spent providing and/or coordinating discharge services:90 minutes Exam Narrative: PHYSICAL EXAM: WEIGHT 93.7 kg BMI 28.8 General: well-developed, well-nourished, no acute distress HEENT: pupils are equal and reactive, no scleral icterus, no conjunctival pallor, head is normocephalic atraumatic Respiratory: clear to auscultation bilaterally, no increased work of breathing Cardiovascular: regular rate, regular rhythm, 2+ bilateral radial pedal pulses, no murmurs Gastrointestinal: soft, nontender, nondistended, positive bowel sounds Skin: non jaundice, no pallor Musculoskeletal: no clubbing, cyanosis or edema Neurological: alert and oriented, speech is clear, no facial asymmetry, no localizing neurologic deficits noted on limited exam Psychiatric: appropriate mood and affect, pleasant and cooperative : deferred Hematologic/lymphatic: no petechiae, no bruising, no anterior cervical or submandibular lymphadenopathy Const: General: cooperative, comfortable, alert and awake Orientation/consciousness: patient oriented x3 Resp: Effort & Inspection: normal respiratory effort Auscultation: clear to auscultation bilaterally GI: Inspection: normal to inspection Auscultation: normal bowel sounds
--- NOTE | 2021-01-14 08:33 | PM.IMPN ---
Progress Note: A&P Assessment and Plan (1) GERD (gastroesophageal reflux disease): Code(s): K21.9 - Gastro-esophageal reflux disease without esophagitis Status: Acute Assessment and Plan: Pyrosis likely r/t GERD consulted infrastructure architect Colon Cancer Screening Hx of Kidney Stones Abd US to rule out gallstones PPI BID EGD and Colonoscopy outpatient Asthma (2) Syncope: Code(s): R55 - Syncope and collapse Status: Acute Assessment and Plan: alert and oriented x 4 no motor or sensory deficits on Neuro Exam carotid Doppler ultrasound, consulted Manager Universal echo Lexiscan stress test due to chest tightness. orthostatic vital signs have been stable. 3 troponins were negative reviewed his EKG and found sinus rhythm. on telemetry monitoring continuously - Telemetry has shown his heart rate to drop 44 as the lowest, with the majority of his heart rate in the 50s and 60s sinus rhythm. Otherwise no ectopy noted. he has a nut allergy with vomiting reaction., could have possibly been exposed or cooked with nut products. This is very unlikely the cause so we will continue his cardiac and GI workup, but may be a possibility. no evidence of COVID at this time (3) Hematuria: Code(s): R31.9 - Hematuria, unspecified Status: Acute Assessment and Plan: noted on UA patient can follow up with PCP for further testing and Prostate workup no groin/flank pain ; no difficulty urinating H/H stable may be related to UTI urine cultures pending renal function stable Creatinine 1.0 treating possible UTI with Cipro colon cancer screening Subjective Date/time seen: 01/14/21 08:33 Francisco's vital signs remained stable this morning. He continues to have some mild bradycardia with a heart rate from 49 to 67 overnight, stable blood pressures from 141/81 up to 152/86. Appreciate telephone directory deliverer consultation, cleared from a cardiac standpoint. Will cancel his Lexiscan stress test. He remains on continuous cardiac telemetry monitoring. Francisco will be having an abdominal ultrasound today and has been NPO for that. Appreciate Gastroenterology's consultation and workup. Continue his Protonix IV b.i.d.. Documenting neuro assessment again today. Yesterday his echo was completed but the report has not been filed. His carotid ultrasounds did not show any significant stenosis and are clear bilaterally. His electrolytes are stable today. His urine culture is negative for growth and his blood cultures remain pending. His UA did show some hematuria and it was recommended that he follow up after discharge with a urologist or his primary care provider for any repeat UA or necessary for further workup regarding the hematuria. Review of Systems Constitutional: Constitutional: Denies excessive sweating, Denies headache(s), Denies increased appetite, Denies snoring and Denies weight gain Eyes: Eyes: Denies exophthalmos, Denies diplopia, Denies floaters and Denies loss of peripheral vision ENT: Denies facial pain, Denies headache(s), Denies odynophagia and Denies tinnitus Respiratory: Respiratory: Denies snoring Gastrointestinal: Gastrointestinal: Reports as per HPI, Reports belching, Denies melena, Reports dyspepsia, Reports heartburn, Denies odynophagia, Denies vomiting and Denies hematemesis Neurologic: Denies headache(s) Endocrine: Endocrine: Denies excessive sweating Exam Narrative: PHYSICAL EXAM: WEIGHT 93.7 kg BMI 28.8 General: well-developed, well-nourished, no acute distress HEENT: pupils are equal and reactive, no scleral icterus, no conjunctival pallor, head is normocephalic atraumatic Respiratory: clear to auscultation bilaterally, no increased work of breathing Cardiovascular: regular rate, regular rhythm, 2+ bilateral radial pedal pulses, no murmurs Gastrointestinal: soft, nontender, nondistended, positive bowel sounds Skin: non jaundice, no pallor Musculoskeletal: no clubbing, cya
[2021-01-14] MEDS: SIMVASTATIN 20 MG TABLET PO (08:52)
[2021-01-14] MEDS: CIPROFLOXACIN 400 MG/D5W 200ML 200 ML 200 MG IVPB (08:52)
[2021-01-14] MEDS: PANTOPRAZOLE SODIUM IV 40 MG VIAL IV PUSH (08:52)
--- NOTE | 2021-01-14 09:08 | WPDGIPROGNO ---
Subjective Date/time seen: 01/14/21 09:08 This very pleasant gentleman Has had no further nausea, vomiting or reflux. Patient denies any syncope, chest pain or lightheadedness. Carotid Dopplers unremarkable. Ultrasound is pending. General: very pleasant patient in no acute distress. HEENT: Head was normocephalic sclerae is clear mouth without masses neck was supple. Heart: Rate rhythm regular without S3 or S4. Lungs: CTA. Abdomen: Soft with no guarding or rigidity. Bowel sounds were active. Neurologic: Cranial nerves 2 through 12 intact. No focal defects. No clonus. Musculoskeletal system: Revealed no joint tenderness or swelling no muscle atrophy. Extremities: Reveal no significant edema. Skin: Warm and dry with normal turgor. Mental status: intact. Patient is alert and oriented. Impression: Pyrosis likely r/t GERD Syncopal episode with Chest Tightness Hematuria Colon Cancer Screening Asthma Hx of Kidney Stones Recommendation: Outpatient EGD and colonoscopy. Very least I would repeat a stool based DNA test. May be discharged from GI point of view pending ultrasound report. Review of Systems Review of Systems: All systems reviewed & are unremarkable except as noted in HPI and below Objective Data Vital Signs Vital Signs: Vital Signs - 24 hr 01/13/21 10:19 01/13/21 12:00 01/13/21 12:06 Temperature 36.0 C L Pulse Rate 65 67 65 Respiratory Rate 20 Blood Pressure 153/73 H 156/82 H Pulse Oximetry 98 01/13/21 14:00 01/13/21 16:00 01/13/21 20:00 Temperature 36.0 C L 35.9 C L Pulse Rate 71 62 67 Respiratory Rate 16 16 Blood Pressure 152/82 H 152/86 H Pulse Oximetry 97 98 01/14/21 00:00 01/14/21 04:00 01/14/21 05:51 Temperature 36.1 C L Pulse Rate 59 L 49 L 54 L Respiratory Rate 16 Blood Pressure 141/81 H Pulse Oximetry 98 Intake/Output Intake/Output: Intake & Output 01/11/21 01/12/21 01/13/21 01/14/21 23:59 23:59 23:59 23:59 Intake Total 1000 2920 200 Output Total 3550 600 Balance 1000 630 -400 Meds/Results Medications: Active Medications Generic Name Dose Route Start Last Admin Trade Name Freq PRN Reason Stop Dose Admin Calcium Carbonate 200 mg 01/13/21 01:08 Calcium Carbonate (Tums) 500 Mg (200 Mg Elemental) PO Q6H PRN Indigestion Ciprofloxacin/Dextrose 200 mls @ 200 mls/hr 01/13/21 09:00 01/14/21 08:52 Cipro 400 Mg/D5w 200 Ml IVPB 200 mls/hr Q12H TRAE Administration Pantoprazole Sodium 40 mg 01/13/21 10:00 01/14/21 08:52 Pantoprazole Sodium Iv 40 Mg Vial IV PUSH 40 mg Q12HR TRAE Administration Simvastatin 20 mg 01/13/21 09:00 01/14/21 08:52 Simvastatin 20 Mg Tablet PO 20 mg DAILY TRAE Administration Radiology Results: ITS Impressions Chest X-Ray 01/12/21 20:04 IMPRESSION: No active pulmonary disease Head CT 01/12/21 20:36 IMPRESSION: No significant intracranial abnormality Chest CTA 01/12/21 22:11 IMPRESSION: No evidence of pulmonary embolism Small sliding hiatal hernia Carotid Doppler Study 01/13/21 13:10 IMPRESSION: 1. <50% stenosis in the right internal carotid artery. 2. <50% stenosis in the left internal carotid artery. Labs Labs: Laboratory Results - last 24 hr 01/13/21 01/13/21 01/13/21 00:13 14:11 14:11 WBC 9.2 RBC 5.03 Hgb 15.3 Hct 45.4 MCV 90.3 MCH 30.4 MCHC 33.7 RDW 12.5 Plt Count 239 MPV 9.6 Sodium 135 L Potassium 3.7 Chloride 102 Carbon Dioxide 24 Anion Gap 9 BUN 14 Creatinine 1.00 Estim Creat Clear Calc 75 Estimated GFR > 60 Glucose 126 H Calcium 9.3 Phosphorus Magnesium Total Bilirubin AST ALT Alkaline Phosphatase Total Protein Albumin TSH 0.752 01/13/21 01/14/21 01/14/21 14:11 06:01 06:01 WBC 8.6 RBC 5.21 Hgb 15.6 Hct 47.4 MCV 91.0 MCH 29.9 MCHC 32.9
[2021-01-14 12:00] VITALS: PULSE 51
[2021-01-14 14:02] VITALS: BP 154/88; PULSE 71; RESP 20; TEMP 35.7; O2SAT 100
== END 2021-01-14 14:36 | disposition home or self-care (01) ==
LOC: ANHED 20:39 → ANH3MED 22:30
PROVIDERS: Nurse Practitioner; Admitting Provider Internal Medicine; Emergency Provider Emergency Medicine; PCP Family Medicine Adolescent Medicine; Visit Provider Hospitalist
DX: R55 Syncope and collapse (principal); R00.1 Bradycardia, unspecified; N20.0 Calculus of kidney; K21.9 Gastro-esophageal reflux disease without esophagitis; R31.9 Hematuria, unspecified; J45.909 Unspecified asthma, uncomplicated; E78.5 Hyperlipidemia, unspecified; F17.210 Nicotine dependence, cigarettes, uncomplicated
CPT/HCPCS: 36415; 70450; 71045; 71275; 76700; 80048; 80053; 80307; 81001; 83735; 84100; 84443; 84484; 85025; 85027; 85610; 85730; 87040; 87086; 93005; 93306; 93880; 96361; 96365; 96366; 96375; 96376; 99285; A9270; C9113; G0378; J0744; J7030; Q9967

== ENCOUNTER 2021-02-16 01:51 | Day surgery (SDC) | payer BC, SELFPAY ==
[2021-02-06 12:39] VITALS: BMI 28.3
[2021-02-16 11:48] VITALS: BP 156/92; PULSE 63; RESP 16; TEMP 36.1; O2SAT 97
--- NOTE | 2021-02-16 11:58 | WPDANESEPPF ---
Anes - Initial Pre Proc Eval Procedure: Operation Date: 02/16/21 13:00 Proposed Procedures p Esophagogastroduodenoscopy - Shay Bennett MD Date/Time: 02/16/21 11:58 Surgeon: Shay Bennett MD Pre Op Diagnosis: GERD Patient Data Age: 61 Gender: M Height: 1.8 m Weight: 94.1 kg Last Vital Signs Temp 97.0 F L 02/16/21 11:48 Pulse 63 02/16/21 11:48 Resp 16 02/16/21 11:48 BP 156/92 H 02/16/21 11:48 Pulse Ox 97 02/16/21 11:48 Allergies Allergy/AdvReac Type Severity Reaction Status Date / Time nut - unspecified Allergy Vomiting Verified 02/16/21 11:47 Penicillins Allergy Rash Verified 02/16/21 11:47 Home Medications Medication Instructions Recorded Confirmed Type simvastatin 20 mg PO DAILY 01/12/21 02/06/21 History pantoprazole [Protonix] 40 mg PO QAM 30 Days #30 tablet 01/14/21 02/06/21 Rx Patient hx anesthesia problems: none Family hx anesthesia problems: none Results Review: All pre-operative results and documents have been reviewed as part of the pre-operative evaluation. [facility] Past Medical History Medical History (Updated 01/13/21 @ 17:33 by Pili Knapp NP) COVID-19 vaccine series completed (~08/2020) Moderna Hypercholesterolemia Mild intermittent asthma Surgical History Surgical History (Updated 01/13/21 @ 01:00 by Waleska Arellano DO) History of tonsillectomy and adenoidectomy Family History Family History Sibling Cerebrovascular accident, Onset Age: 60 Father Myocardial infarct, Onset Age: 65 Hypertension Mother Patient's mother is in good health age 93 Social History Social History (Updated 01/13/21 @ 01:16 by Waleska Arellano DO) Social History: He lives in [facility] [place] with his of 39 years. They have 1 daughter 1 son who are healthy. They have several grandchildren. He is retired from [employer]. He drinks 5-6 beers every other week or so. He smokes an occasional cigarette. He has never been a daily smoker. He uses marijuana on occasion. Primary care physician: Dr. Karl Freeman Smoking status: Never smoker Alcohol intake: current Drinks per week: 1 Substance use: current Substance use type: marijuana Other substance usage details: Rare Last use: [employer]IN[employer], [employer] OCCASION Living arrangements: with family Spiritual care concerns: No Anes - Eval Final PreProcedure Day of Procedure 02/16/21 11:58 Patient weight: overweight Heart: regular rate and rhythm Lungs: clear to auscultation Airway: Mallampati scale class II Neurological: alert and oriented Last oral intake: >/= 8 hours ASA classification: II Emergent: no Anesthetic plan: proceed Anesthesia type and monitoring: general GIVS and standard monitoring Results Review: All pre-operative results and documents have been reviewed as part of the pre-operative evaluation. Informed Consent: The patient's anesthetic plan and its attendant risks and benefits were discussed with the patient/family/POA. Questions were solicited and answers provided to the satisfaction of the patient/family/POA.
[2021-02-16] MEDS: LACTATED RINGERS 1,000 ML 150 ML IV CONT (12:09)
--- NOTE | 2021-02-16 12:22 | PM.HPGS ---
History of Present Illness History of Present Illness Consent: Risks, benefits, and alternatives have been discussed and questions answered. Patient agrees to proceed with procedure. Chief complaint: GERD Narrative: Francisco Santa is a 61 year old male who more than a month ago had non-cardiac chest pain with syncope and nausea/vomiting, started on protonix since and GERD has improved, no more episodes. Never had EGD. Review of Systems Constitutional: Constitutional: Denies headache(s) and Denies weakness Eyes: Eyes: Denies blurry vision ENT: Reports Normal hearing present, Denies headache(s) and Denies neck pain Cardiovascular: Cardiovascular: Denies chest pain and Denies dyspnea Respiratory: Respiratory: Denies dyspnea Gastrointestinal: Gastrointestinal: Reports no additional gastrointestinal complaints Genitourinary: Genitourinary: Denies dysuria Musculoskeletal: Musculoskeletal: Denies neck pain Integumentary/Breasts: Skin/Breast: Denies dry skin Neurologic: Reports Normal hearing present, Denies headache(s) and Denies weakness Psychiatric: Psychiatric: Denies anxiety Endocrine: Endocrine: Denies change in body appearance Hematologic/Lymphatic: Hematologic/Lymphatic: Denies easy bleeding Allergic/Immunologic: Allergic/Immunologic: Denies urticaria PMFSH Past Medical History Medical History (Updated 02/16/21 @ 12:23 by Shay Bennett MD) Colon cancer screening COVID-19 vaccine series completed (~08/2020) Moderna Hypercholesterolemia Mild intermittent asthma Non-cardiac chest pain Surgical History Surgical History (Updated 01/13/21 @ 01:00 by Waleska Arellano DO) History of tonsillectomy and adenoidectomy Family History Family History Sibling Cerebrovascular accident, Onset Age: 60 Father Myocardial infarct, Onset Age: 65 Hypertension Mother Patient's mother is in good health age 93 Social History Social History (Updated 01/13/21 @ 01:16 by Waleska Arellano DO) Social History: He lives in [facility] with his of 39 years. They have 1 daughter 1 son who are healthy. They have several grandchildren. He is retired from [employer]. He drinks 5-6 beers every other week or so. He smokes an occasional cigarette. He has never been a daily smoker. He uses marijuana on occasion. Primary care physician: Dr. Karl Freeman Smoking status: Never smoker Alcohol intake: current Drinks per week: 1 Substance use: current Substance use type: marijuana Other substance usage details: Rare Last use: DRINKS BEER SOCIALLY, MARIJUANA ON OCCASION Living arrangements: with family Spiritual care concerns: No Meds Home Medications and Allergies Home Medications Medication Instructions Recorded Confirmed Type simvastatin 20 mg PO DAILY 01/12/21 02/06/21 History pantoprazole [Protonix] 40 mg PO QAM 30 Days #30 tablet 01/14/21 02/06/21 Rx Allergies Allergy/AdvReac Type Severity Reaction Status Date / Time nut - unspecified Allergy Vomiting Verified 02/16/21 11:47 Penicillins Allergy Rash Verified 02/16/21 11:47 Vital Signs Vital Signs - 24 hr 02/16/21 11:48 Temperature 97.0 F L Pulse Rate 63 Respiratory Rate 16 Blood Pressure 156/92 H Pulse Oximetry 97 Exam Const: General: comfortable and no acute distress HENMT: General nose exam: Normal nares present Eyes: General: appearance normal, both eyes and all related structures Neck: Neck: no JVD Resp: Auscultation: clear to auscultation bilaterally Cardio: Rate: regular rate Rhythm: regular rhythm GI: Inspection: non-distended GI Palp: Yes Soft to palpation Skin: General skin exam: normal color Neuro: General: gait normal Speech: normal speech Extrem: General: normal to inspection Psych: Mental Status: mental status grossly normal Assessment and Plan Assessment and plan (1) GE
[2021-02-16 12:30] VITALS: BP 85/42; PULSE 57; RESP 14; O2SAT 97
[2021-02-16 12:40] VITALS: BP 94/56; PULSE 70; RESP 22; O2SAT 99
[2021-02-16 12:50] VITALS: BP 125/86; PULSE 73; RESP 16; O2SAT 100
== END 2021-02-16 13:12 | disposition home or self-care (01) ==
PROVIDERS: PCP Family Medicine Adolescent Medicine; Visit Provider Internal Medicine Gastroenterology
PROC: 0DJ08ZZ Inspection of Upper Intestinal Tract, Via Natural or Artificial Opening Endoscopic (ICD-10-PCS; CPT 43235; principal; 2021-02-16 13:00)
DX: R07.89 Other chest pain (principal); K22.70 Barrett's esophagus without dysplasia; K29.50 Unspecified chronic gastritis without bleeding; E78.00 Pure hypercholesterolemia, unspecified; F12.90 Cannabis use, unspecified, uncomplicated
CPT/HCPCS: 43239; 88305; J7120

== ENCOUNTER 2022-05-29 00:48 | Day surgery (SDC) | payer BC, SELFPAY ==
[2022-05-16 13:30] VITALS: BMI 26.5
[2022-05-29 07:16] VITALS: BP 144/89; PULSE 70; RESP 18; TEMP 36.2; O2SAT 99
[2022-05-29] MEDS: LACTATED RINGERS 1,000 ML 150 ML IV CONT (07:33)
--- NOTE | 2022-05-29 07:44 | WPDANESEPPF ---
Anes - Initial Pre Proc Eval Procedure: Operation Date: 05/29/22 08:30 Proposed Procedures p Esophagogastroduodenoscopy & Screening Colonoscopy - Shay Bennett MD Date/Time: 05/29/22 07:44 Surgeon: Shay Bennett MD Pre Op Diagnosis: Barretts'esophagus; neoplasm screening Patient Data Age: 62 Gender: M Height: 1.8 m Weight: 86.4 kg Last Vital Signs Temp 97.2 F L 05/29/22 07:16 Pulse 70 05/29/22 07:16 Resp 18 05/29/22 07:16 BP 144/89 H 05/29/22 07:16 Pulse Ox 99 05/29/22 07:16 O2 Del Method Room Air 05/29/22 07:16 Allergies Allergy/AdvReac Type Severity Reaction Status Date / Time nut - unspecified Allergy Severe Vomiting Verified 05/29/22 07:15 Penicillins Allergy Severe Rash Verified 05/29/22 07:15 Home Medications Medication Instructions Recorded Confirmed Type pantoprazole 40 mg tablet,delayed 40 mg PO QAM #30 tabs 04/15/22 05/16/22 Rx release (Protonix) simvastatin 20 mg tablet 20 mg PO DAILY #90 tabs 04/16/22 05/16/22 Rx docusate sodium 100 mg capsule 100 mg PO DAILY 05/16/22 05/16/22 History (Stool Softener) Patient hx anesthesia problems: none Family hx anesthesia problems: none Results Review: All pre-operative results and documents have been reviewed as part of the pre-operative evaluation. [facility] Past Medical History Medical History (Updated 02/11/22 @ 08:00 by Karl Villalobos MD) Colon cancer screening COVID-19 vaccine series completed (~08/2020) Moderna Hypercholesterolemia Mild intermittent asthma Non-cardiac chest pain Syncope Ureteral calculus Surgical History Surgical History (Updated 01/13/21 @ 01:00 by Waleska Arellano DO) History of tonsillectomy and adenoidectomy Family History Family History Sibling Cerebrovascular accident, Onset Age: 60 Father Myocardial infarct, Onset Age: 65 Hypertension Mother Patient's mother is in good health age 93 Social History Social History (Updated 01/13/21 @ 01:16 by JAYNA Rodriguez Social History: He lives in [facility] with his of 39 years. They have 1 daughter 1 son who are healthy. They have several grandchildren. He is retired from [employer]. He drinks 5-6 beers every other week or so. He smokes an occasional cigarette. He has never been a daily smoker. He uses marijuana on occasion. Primary care physician: Dr. Karl Freeman Smoking status: Never smoker Alcohol intake: current Drinks per week: 1 Substance use: current Substance use type: does not use Other substance usage details: Rare Last use: DRINKS BEER SOCIALLY, MARIJUANA ON OCCASION Living arrangements: with family Spiritual care concerns: No Anes - Eval Final PreProcedure Day of Procedure 05/29/22 07:44 Patient weight: normal Heart: regular rate and rhythm Lungs: clear to auscultation Airway: Mallampati scale class II Neurological: alert and oriented Last oral intake: >/= 8 hours ASA classification: II Emergent: no Anesthetic plan: proceed Anesthesia type and monitoring: general GIVS and standard monitoring Results Review: All pre-operative results and documents have been reviewed as part of the pre-operative evaluation. Informed Consent: The patient's anesthetic plan and its attendant risks and benefits were discussed with the patient/family/POA. Questions were solicited and answers provided to the satisfaction of the patient/family/POA.
--- NOTE | 2022-05-29 08:25 | PM.HPGS ---
History of Present Illness History of Present Illness Consent: Risks, benefits, and alternatives have been discussed and questions answered. Patient agrees to proceed with procedure. Chief complaint: Barretts'esophagus; neoplasm screening Narrative: Francisco Santa is a 62 year old male here for Barrientos's 1 year ago, doing well on pantoprazole, never had screening colonoscopy. Review of Systems Constitutional: Constitutional: Denies headache(s) and Denies weakness Eyes: Eyes: Denies blurry vision ENT: Reports Normal hearing present, Denies headache(s) and Denies neck pain Cardiovascular: Cardiovascular: Denies chest pain and Denies dyspnea Respiratory: Respiratory: Denies dyspnea Gastrointestinal: Gastrointestinal: Reports no additional gastrointestinal complaints Genitourinary: Genitourinary: Denies dysuria Musculoskeletal: Musculoskeletal: Denies neck pain Integumentary/Breasts: Skin/Breast: Denies dry skin Neurologic: Reports Normal hearing present, Denies headache(s) and Denies weakness Psychiatric: Psychiatric: Denies anxiety Endocrine: Endocrine: Denies change in body appearance Hematologic/Lymphatic: Hematologic/Lymphatic: Denies easy bleeding Allergic/Immunologic: Allergic/Immunologic: Denies urticaria PMFSH Past Medical History Medical History (Updated 02/11/22 @ 08:00 by Karl Villalobos MD) Colon cancer screening COVID-19 vaccine series completed (~08/2020) Moderna Hypercholesterolemia Mild intermittent asthma Non-cardiac chest pain Syncope Ureteral calculus Surgical History Surgical History (Updated 01/13/21 @ 01:00 by Waleska Arellano DO) History of tonsillectomy and adenoidectomy Family History Family History Sibling Cerebrovascular accident, Onset Age: 60 Father Myocardial infarct, Onset Age: 65 Hypertension Mother Patient's mother is in good health age 93 Social History Social History (Updated 01/13/21 @ 01:16 by Waleska Arellano DO) Social History: He lives in [facility] with his of 39 years. They have 1 daughter 1 son who are healthy. They have several grandchildren. He is retired from [employer]. He drinks 5-6 beers every other week or so. He smokes an occasional cigarette. He has never been a daily smoker. He uses marijuana on occasion. Primary care physician: Dr. Karl Freeman Smoking status: Never smoker Alcohol intake: current Drinks per week: 1 Substance use: current Substance use type: does not use Other substance usage details: Rare Last use: DRINKS BEER SOCIALLY, MARIJUANA ON OCCASION Living arrangements: with family Spiritual care concerns: No Meds Home Medications and Allergies Home Medications Medication Instructions Recorded Confirmed Type pantoprazole 40 mg tablet,delayed 40 mg PO QAM #30 tabs 04/15/22 05/16/22 Rx release (Protonix) simvastatin 20 mg tablet 20 mg PO DAILY #90 tabs 04/16/22 05/16/22 Rx docusate sodium 100 mg capsule 100 mg PO DAILY 05/16/22 05/16/22 History (Stool Softener) Allergies Allergy/AdvReac Type Severity Reaction Status Date / Time nut - unspecified Allergy Severe Vomiting Verified 05/29/22 07:15 Penicillins Allergy Severe Rash Verified 05/29/22 07:15 Vital Signs Vital Signs - 24 hr 05/29/22 07:16 Temperature 97.2 F L Pulse Rate 70 Respiratory Rate 18 Blood Pressure 144/89 H Pulse Oximetry 99 Oxygen Delivery Room Air Exam Const: General: comfortable and no acute distress HENMT: Face/Nose/Sinus: Normal nares present Eyes: General: appearance normal, both eyes and all related structures Neck: Neck: no JVD Resp: Auscultation: clear to auscultation bilaterally Cardio: Rate: regular rate Rhythm: regular rhythm GI: Inspection: non-distended GI Palp: Yes Soft to palpation Skin: General skin exam: normal color Neuro: General: gait normal Speech: nor
--- NOTE | 2022-05-29 08:38 | SUR.OPER ---
EGD ended at 835. Colonoscopy began at 840.
[2022-05-29 08:59] VITALS: BP 104/63; PULSE 64; RESP 18; TEMP 36.2; O2SAT 100
[2022-05-29 09:09] VITALS: BP 113/79; PULSE 73; RESP 18; TEMP 36.2; O2SAT 100
[2022-05-29 09:19] VITALS: BP 128/83; PULSE 66; RESP 20; TEMP 36.2; O2SAT 100
== END 2022-05-29 09:35 | disposition home or self-care (01) ==
PROVIDERS: PCP Family Medicine Adolescent Medicine; Visit Provider Internal Medicine Gastroenterology
PROC: 0DJ08ZZ Inspection of Upper Intestinal Tract, Via Natural or Artificial Opening Endoscopic (ICD-10-PCS; CPT 43235; principal; 2022-05-29 08:30)
DX: Z12.11 Encounter for screening for malignant neoplasm of colon (principal); D12.3 Benign neoplasm of transverse colon; D12.5 Benign neoplasm of sigmoid colon; K64.8 Other hemorrhoids; K22.70 Barrett's esophagus without dysplasia; K44.9 Diaphragmatic hernia without obstruction or gangrene; E78.00 Pure hypercholesterolemia, unspecified; Z72.0 Tobacco use
CPT/HCPCS: 45385; 43239; 88305; J2704; J3010; J7120

== ENCOUNTER 2023-02-12 10:29 | Outpatient (CLI) | payer BC, SELFPAY ==
--- NOTE | 2023-02-12 10:42 | ECG_ITS ---
Measurements Intervals [place] Rate: 57 P: 54 GA: 167 QRS: -16 QRSD: 98 T: -2 QT: 420 QTc: 411 Interpretive Statements SINUS BRADYCARDIA DELAYED PRECORDIAL R/S TRANSITION MINIMAL Q WAVES- HIGH LATERAL LEADS BORDERLINE T WAVE ABNORMALITY- INFERIOR LEADS BORDERLINE ECG COMPARED TO ECG 01/12/2021 19:44:58 NO SIGNIFICANT CHANGES Electronically Signed On 02-12-2023 11:15:15 CDT by Sanchez Pratt D.O.
== END 2023-02-12 10:30 | disposition home or self-care (01) ==
LOC: ANHSURGERY 10:32
PROVIDERS: PCP Family Medicine Adolescent Medicine; Visit Provider Surgery
DX: Z01.812 Encounter for preprocedural laboratory examination (principal); Z01.810 Encounter for preprocedural cardiovascular examination; K40.90 Unilateral inguinal hernia, without obstruction or gangrene, not specified as recurrent; E78.00 Pure hypercholesterolemia, unspecified; R00.1 Bradycardia, unspecified
CPT/HCPCS: 36415; 86850; 86900; 86901; 93005

== ENCOUNTER 2023-02-19 00:10 | Day surgery (SDC) | payer BC, SELFPAY ==
[2023-02-10 13:51] VITALS: BMI 26.5
--- NOTE | 2023-02-10 13:55 | PC.NURSE ---
Addendum entered by Sriram Muhammad RN 02/10/23 14:02: Shower with Chlorhexadine gluconate (Hebiclense). Original Note: Report to the Outpatient Waiting Room, entrance under the green pavilion located off [facility], at time _0600_ on date _[id number]_. Planned Procedure Time: _0730_. Time changes happen often and if your time is changed the preop area will call you the afternoon before. - You and your visitor will be asked to self-screen and do not enter if you have any COVID symptoms. - A mask is optional within the hospital at this time. Patients may have clear liquids (water, carbonated beverages, clear teas, apple juice) until 3 hours prior to surgery with a maximum of 20 ounces. - No food from midnight until time of surgery Take the following medications with a SIP of water the morning of surgery: ____None DO NOT STOP ANY OF YOUR OTHER PRESCRIPTION MEDICATIONS PRIOR TO SURGERY ?EXCEPT THE FOLLOWING Medications to discontinue per physician ___None Date to take last dose Please no make-up, nail slovenian, hairspray, perfume, deodorant, or body powder the day of surgery. No jewelry (including any body piercings) or valuables the day of surgery, leave them at home. Please take a shower or bath the night before, or the morning of, surgery with an antibacterial soap. Wear comfortable, loose fitting clothing. - Jewelry must be removed prior to entering the operating room. Rings and piercings that are not removed may be cut off. - The hospital will not accept responsibility for valuables. - Please leave all valuables, including medications, at home the day of surgery. If you are going home after surgery, a licensed warehouse driver must drive you home. - NO public transportation without another adult if you receive anesthesia. - We recommend that an adult stay with you for 24 hours following discharge. - We also recommend that you do not drive, make important decision, drink alcoholic beverages, or take any drugs that were not prescribed by your health care provider for at least 24 hours after your discharge time. Follow any additional instructions given to you from your surgeon. If you or anyone in your household have experienced Covid symptoms in the past week, please notify your surgeon or the nurse liaison at the phone number below for possible testing. Telephone instructions given to __Patient___and asked if any additional questions and then verbalized understanding. Patient advised to call surgeon office or pre surgery nurse liaison [phone] if any additional questions.
[2023-02-19] VITALS (8 sets, daily range): BP systolic 133–156; BP diastolic 80–97; PULSE 67–102; RESP 14–18; TEMP 36.3–37; O2SAT 98–100
[2023-02-19] MEDS: LACTATED RINGERS 1,000 ML 30 ML IV CONT ×2 (06:45→08:45)
[2023-02-19] MEDS: ACETAMINOPHEN 500 MG TABLET 1000 MG PO (06:50)
[2023-02-19] MEDS: KETOROLAC 15 MG/ML VIAL (*BKC) IV PUSH (06:50)
--- NOTE | 2023-02-19 06:55 | WPDANESEPPF ---
Anes - Initial Pre Proc Eval Procedure: Operation Date: 02/19/23 07:30 Proposed Procedures p Laparoscopic Left Inguinal Hernia Repair with Mesh, Davinci Assisted - Parviz Schulz DO Date/Time: 02/19/23 06:55 Surgeon: Parviz Schulz DO Pre Op Diagnosis: Left Ing Hernia Patient Data Age: 63 Gender: M Height: 1.8 m Weight: 86.4 kg Allergies Allergy/AdvReac Type Severity Reaction Status Date / Time nut - unspecified Allergy Severe Vomiting Verified 02/10/23 13:50 Penicillins Allergy Severe Rash Verified 02/10/23 13:50 Home Medications Medication Instructions Recorded Confirmed Type pantoprazole 40 mg tablet,delayed 40 mg PO QAM #90 tabs 08/13/22 02/10/23 Rx release (Protonix) docusate sodium 100 mg capsule 200 mg PO DAILY 09/12/22 02/10/23 History (Stool Softener) simvastatin 20 mg tablet 20 mg PO DAILY #90 tabs 10/21/22 02/10/23 Rx tamsulosin 0.4 mg capsule 0.4 mg PO HS 02/10/23 02/10/23 History Patient hx anesthesia problems: none Family hx anesthesia problems: none Results Review: All pre-operative results and documents have been reviewed as part of the pre-operative evaluation. [facility] Past Medical History Medical History Adenomatous colon polyp Colon cancer screening COVID-19 vaccine series completed (~08/2020) Moderna Hiatal hernia Hypercholesterolemia Mild intermittent asthma Non-cardiac chest pain Syncope Ureteral calculus Surgical History Surgical History History of tonsillectomy and adenoidectomy Family History Family History Sibling Cerebrovascular accident, Onset Age: 60 Father Myocardial infarct, Onset Age: 65 Hypertension Mother Patient's mother is in good health age 93 Social History Social History Social History: He lives in [facility] with his of 39 years. They have 1 daughter 1 son who are healthy. They have several grandchildren. He is retired from [employer]. He drinks 5-6 beers every other week or so. He smokes an occasional cigarette. He has never been a daily smoker. He uses marijuana on occasion. Primary care physician: Dr. Karl Freeman Smoking status: Never smoker Alcohol intake: current Drinks per week: 1 Substance use: current Substance use type: does not use Other substance usage details: Rare Last use: DRINKS BEER SOCIALLY, MARIJUANA ON OCCASION Living arrangements: with family Spiritual care concerns: No Anes - Eval Final PreProcedure Day of Procedure 02/19/23 06:55 Patient weight: overweight Heart: regular rate and rhythm Lungs: clear to auscultation Airway: Mallampati scale class II Neurological: alert and oriented Last oral intake: >/= 8 hours ASA classification: II Emergent: no Anesthetic plan: proceed Anesthesia type and monitoring: general ETT and standard monitoring Results Review: All pre-operative results and documents have been reviewed as part of the pre-operative evaluation. Informed Consent: The patient's anesthetic plan and its attendant risks and benefits were discussed with the patient/family/POA. Questions were solicited and answers provided to the satisfaction of the patient/family/POA.
--- NOTE | 2023-02-19 07:20 | WPDHPUPDATE1 ---
History and Physical Update Update Date/Time: 02/19/23 07:20 History and Physical has been reviewed, including an updated exam of the patient. There are NO changes in the patient's condition. Risks, benefits, and alternatives have been discussed and questions answered. Patient agrees to proceed with procedure.
--- NOTE | 2023-02-19 07:20 | PM.IMHP ---
H&P: HPI History of Present Illness Date/Time: 02/19/23 07:20 Chief Complaint: left inguinal hernia Narrative: 63 yo man presents for left inguinal hernia repair. He reports no changes since last seen in office. Review of Systems Review of Systems: All systems reviewed & are unremarkable except as noted in HPI and below Constitutional: Constitutional: Denies chills, Denies fever(s), Denies headache(s) and Denies weight loss Eyes: Eyes: Denies change in vision ENT: Denies dizziness, Denies headache(s), Denies neck mass and Denies throat swelling Cardiovascular: Cardiovascular: Denies chest pain, Denies lightheadedness and Denies dyspnea Respiratory: Respiratory: Denies cough, Denies dyspnea and Denies wheezing Gastrointestinal: Gastrointestinal: Denies abdominal pain, Denies change in bowel habits, Denies nausea and Denies vomiting Genitourinary: Genitourinary: Denies hematuria and Denies dysuria Musculoskeletal: Musculoskeletal: Reports as per HPI Integumentary/Breasts: Skin/Breast: Reports as per HPI Neurologic: Denies dizziness and Denies headache(s) Allergic/Immunologic: Allergic/Immunologic: Denies throat swelling and Denies wheezing [facility] Past Medical History Medical History Adenomatous colon polyp Colon cancer screening COVID-19 vaccine series completed (~08/2020) Moderna Hiatal hernia Hypercholesterolemia Mild intermittent asthma Non-cardiac chest pain Syncope Ureteral calculus Surgical History Surgical History History of tonsillectomy and adenoidectomy Family History Family History Sibling Cerebrovascular accident, Onset Age: 60 Father Myocardial infarct, Onset Age: 65 Hypertension Mother Patient's mother is in good health age 93 Social History Social History Social History: He lives in [facility] with his of 39 years. They have 1 daughter 1 son who are healthy. They have several grandchildren. He is retired from [employer]. He drinks 5-6 beers every other week or so. He smokes an occasional cigarette. He has never been a daily smoker. He uses marijuana on occasion. Primary care physician: Dr. Karl Freeman Smoking status: Never smoker Alcohol intake: current Drinks per week: 1 Substance use: current Substance use type: does not use Other substance usage details: Rare Last use: DRINKS BEER [employer]IALLY, MARIJUANA ON OCCASION Living arrangements: with family Spiritual care concerns: No Meds Home Medications and Allergies Home Medications Medication Instructions Recorded Confirmed Type pantoprazole 40 mg tablet,delayed 40 mg PO QAM #90 tabs 08/13/22 02/10/23 Rx release (Protonix) docusate sodium 100 mg capsule 200 mg PO DAILY 09/12/22 02/10/23 History (Stool Softener) simvastatin 20 mg tablet 20 mg PO DAILY #90 tabs 10/21/22 02/10/23 Rx tamsulosin 0.4 mg capsule 0.4 mg PO HS 02/10/23 02/10/23 History Allergies Allergy/AdvReac Type Severity Reaction Status Date / Time nut - unspecified Allergy Severe Vomiting Verified 02/10/23 13:50 Penicillins Allergy Severe Rash Verified 02/10/23 13:50 Exam Const: General: no acute distress and alert Orientation/consciousness: patient oriented x3 HENMT: Head: normocephalic and atraumatic Ears: hearing grossly normal bilaterally Face/Nose/Sinus: Normal nares present Mouth: Yes Normal oral and palatal mucosa present Eyes: Periorbital: periorbital findings normal Sclera: sclerae normal EOM: EOMs intact bilaterally Neck: Neck: normal visual inspection, no lymphadenopathy and trachea midline Chest: Chest palpation & inspection: normal inspection of the chest Resp: Effort & Inspection: normal respiratory effort Auscultation: clear to auscultation b
[2023-02-19] MEDS: ceFAZolin 2 GM/D5W 50 ML 2 GM/50 ML BAG IVPB (07:28)
[2023-02-19] MEDS: BUPIVACAINE/EPINEPHRINE 0.5% 50 ML VIAL 30 ML INFILTRATE (07:50)
--- NOTE | 2023-02-19 08:30 | W.PM.PROC2 ---
Procedure Note - Detailed Date of Procedure 02/19/23 Pre-op Diagnosis Left Inguinal Hernia Post-op Diagnosis Same (Direct LIH) Procedure Performed Laparoscopic left inguinal hernia repair with mesh, da Frankie assisted Surgeon Parviz Schulz, Anesthesia General and Local (0.5% bupivacaine with epinephrine) Indications This is a 63-year-old man who presented with a left groin bulge that he noticed about 10 months ago. The bulge had not changed much in size but he was having some occasional discomfort. He was found have a reducible left inguinal hernia on physical exam. The patient was also having some occasional right groin pain but this has since resolved. No right inguinal hernia was identified on physical exam. Discussions were made with the patient about treatment options and decision was made to proceed with robotic assisted laparoscopic left inguinal hernia repair with mesh. Findings Laparoscopic left inguinal hernia repair was performed. The patient was found to have a moderate-sized direct left inguinal hernia. A robotic transabdominal preperitoneal approach was utilized for repair. Once a wide enough preperitoneal pocket was created, I then placed a large left 3DMax mid mesh overlying the entire left myopectineal orifice. There was no evidence of a right inguinal hernia. No specimens were obtained for pathology. Description of Procedure Procedure as well as risks, benefits, and alternatives were discussed with the patient. Written consent was obtained and placed in chart prior to procedure. Patient was brought back to surgical suite. He was placed supine on operating table. Time-out was done to confirm patient and procedure. He was then intubated by Anesthesia Department. His abdomen was prepped and draped in sterile fashion using chlorhexidine prep. 0.5% bupivacaine with epinephrine was infiltrated at each location for incision. An 8 mm incision was made in the left lateral abdomen, and a 5 mm Optiview trocar was advanced through the abdominal layers under direct visualization. Once inside the abdominal cavity, carbon dioxide insufflation was used to create a pneumoperitoneum. A camera was inserted and the abdominal cavity was inspected. The patient was placed in slight Trendelenburg position. An 8 millimeter incision was made on the right lateral abdomen and an 8 millimeter trocar was inserted under direct visualization. Another 8 millimeter incision was made just superior to the umbilicus and an 8 millimeter trocar was inserted under direct visualization. The 5 mm port was then removed and this was replaced with another 8 mm robotic port. The robotic arms were brought up to the patient's bedside and secured to the ports. The camera and instruments were inserted. I then moved over to the robotic console and took control of the camera and instruments. After careful inspection of the abdominal cavity, I began scoring the peritoneum along the left lower quadrant using scissors with electrocautery. The preperitoneal plane was entered and this was carefully dissected caudally along the inferior epigastric vessels. Careful dissection with scissors with electrocautery and blunt dissection was used to continue this dissection. I dissected far enough laterally to allow for mesh placement, and also dissected medially to identify the pubic arch and Chaitanya's ligament. The hernia sac was identified and carefully dissected posteriorly. The cord contents were also identified and the peritoneum was carefully dissected far enough posteriorly to allow for mesh placement. Once an adequate pocket was created, I then placed the mesh within the preperitoneal pocket and carefully unfolded it. The mesh was centered on the hernia defect with adequate overlap circumferentially. The inferior edge of the mesh was inspected to ensure that it was far enough away from the peritoneal edge. The mesh appeared in proper position overlying the entire myopectineal
[2023-02-19] MEDS: oxyCODONE HCL (*CRX) 5 MG TAB IR PO (09:50)
== END 2023-02-19 10:55 | disposition home or self-care (01) ==
PROVIDERS: PCP Family Medicine Adolescent Medicine; Visit Provider Surgery
PROC: 8E0Y4CZ Robotic Assisted Procedure of Lower Extremity, Percutaneous Endoscopic Approach (ICD-10-PCS; CPT 49650; principal; 2023-02-19 07:30)
DX: K40.90 Unilateral inguinal hernia, without obstruction or gangrene, not specified as recurrent (principal); J45.20 Mild intermittent asthma, uncomplicated; E78.00 Pure hypercholesterolemia, unspecified
CPT/HCPCS: 49650; S2900; A9270; C1781; J0690; J1100; J1170; J1885; J2250; J2405; J2704; J3010; J7120